=== PATIENT | male | born 1995 | race Caucasian/White ===

== ENCOUNTER 2016-09-04 15:30 | Emergency (ER) | payer OTHER ==
[~2016-09-04] VITALS: Ht 182.9 cm; Wt 77.1 kg
[2016-09-04 15:30] VITALS: BP 117/63
[~2016-09-04 15:30] MED LIST: LORazepam Inj 2mg/ml 1ml ONE
[2016-09-04] MEDS ORDERED: LORazepam Inj 2mg/ml 1ml IV ONE (15:45)
--- NOTE | 2016-09-04 15:45 | Emergency Room Report ---
History of Present Illness General Chief Complaint: Overdose Source: Patient, EMS Present Illness HPI 21YOM BIBEMS with [employer] after suspected overdose. EMS states they found patient in hotel room with a friend, unresponsive, not breathing. Friend states patient "did meth and heroin." EMS states patient had pinpoint pupils, shallow respirations, had to provide BVM support, gave 4mg IV narcan. No signs of trauma. In ED, patient more awake, "doesnt remember what happens." C/o only of "being very cold." Allergies: Coded Allergies: No Known Allergies (Unverified , 09/04/16) Patient History Past Medical History: none Past Surgical History: none Pertinent Family History: none Social History: Reports: drug use Immunizations: UTD Reviewed Nursing Documentation: PMH: Agreed, PSxH: Agreed Nursing Documentation-PMH Past Medical History: No Stated History Review of Systems All Other Systems: negative except mentioned in HPI Physical Exam Vital Signs Date Time Temp Pulse Resp B/P Pulse Ox O2 Delivery O2 Flow Rate FiO2 09/04/16 15:19 98.2 138 18 147/72 100 Room Air Sp02 EP Interpretation: reviewed, abnormal General Appearance: normal inspection, well appearing, no apparent distress, alert, GCS 15, non-toxic, cachetic, other - shaking with chills Head: normocephalic, atraumatic Eyes: bilateral eye EOMI, bilateral eye PERRL ENT: normal ENT inspection, hearing grossly normal, normal voice, other - Poor oral health Neck: normal inspection, full range of motion, supple, no meningismus, no bony tend Respiratory: normal inspection, lungs clear, normal breath sounds, no respiratory distress, no retraction, no accessory muscle use, no wheezing, speaking full sentences Cardiovascular #1: regular rate, rhythm, no edema, tachycardia Gastrointestinal: normal inspection, normal bowel sounds, non tender, soft, no guarding, no hernia Genitourinary: no CVA tenderness Musculoskeletal: normal inspection, back normal, normal range of motion, Dalton' s Sign negative Neurologic: normal inspection, alert, oriented x3, responsive, plan nurse III-XII nml as tested, motor strength/tone normal, speech normal Psychiatric: normal inspection, judgement/insight normal, mood/affect normal Skin: normal inspection Lymphatic: normal inspection Medical Decision Making Diagnostic Impression: Primary Impression: Drug overdose Qualified Codes: T50.901A - Poisoning by unspecified drugs, medicaments and biological substances, accidental (unintentional), initial encounter ER Course 21YOM with alleged drug overdose - meth and heroin VS now significant for tachycardia, likely unopposed alpha from meth after narcan given for heroin - Given 1mg ativan for initial tachycardia to 130-40. Resolved upon discharge - Observed on Cardiac/respiratory monitor for multiple hours - No additional respiratory depression - DCed with friend who was also in ED for evaluation - Advised to STOP using illict drugs. Given info for outpatient addiction services. Last Vital Signs Date Time Temp Pulse Resp B/P Pulse Ox O2 Delivery O2 Flow Rate FiO2 09/04/16 15:19 98.2 138 18 147/72 100 Room Air Status: improved Disposition: HOME, SELF-CARE MAGGIE VERA M.D. September 04, 2016 15:45
[2016-09-04 17:00] VITALS: BP 100/59
[2016-09-04] MEDS ORDERED: Naloxone 1mg/ml 2ml IVP ONE (18:30)
[2016-09-04 19:10] VITALS: BP 100/59
== END 2016-09-04 19:00 | disposition home or self-care (01) ==
LOC: EDBD 15:30 → EMR 15:56
DX: T50.901A Poisoning by unspecified drugs, medicaments and biological substances, accidental (unintentional), initial encounter (principal); F19.90 Other psychoactive substance use, unspecified, uncomplicated
CPT/HCPCS: 96374; 96375; 99284; J2310

== ENCOUNTER 2016-09-05 07:17 | Emergency (ER) | payer OTHER ==
[~2016-09-05] VITALS: Ht 172.7 cm; Wt 68.0 kg
[2016-09-05 07:21] VITALS: BP 125/80
[2016-09-05] MEDS ORDERED: Gentamicin 0.3% Opth Soln 5ml BOTH EYES ONE (07:45)
--- NOTE | 2016-09-05 08:21 | Emergency Room Report ---
History of Present Illness General Chief Complaint: Overdose Source: Patient, Family Member, Medical Record, EMS Present Illness HPI Patient was brought in by paramedics for report of drug overdose Patient reports taking heroin earlier today Patient had an intentional overdose Paramedics report that the patient was seen recently as well And upon review of records the patient was here yesterday with similar complaint At this time patient is awake denies any headache or visual changes denies any chest pain or shortness of breath Patient denies adamantly suicidal or homicidal thought Allergies: Uncoded Allergies: ERYTHROMYCIN (Allergy, Unknown, 09/05/16) Patient History Past Medical History: see triage record Pertinent Family History: none Reviewed Nursing Documentation: PMH: Agreed, PSxH: Agreed Nursing Documentation-PMH Past Medical History: No History, Except For Review of Systems All Other Systems: negative except mentioned in HPI Physical Exam Vital Signs Date Time Temp Pulse Resp B/P Pulse Ox O2 Delivery O2 Flow Rate FiO2 09/05/16 07:12 98.2 59 16 168/78 99 Room Air Sp02 EP Interpretation: reviewed, normal General Appearance: well appearing, no apparent distress Head: normocephalic, atraumatic Eyes: bilateral eye EOMI, bilateral eye PERRL, bilateral eye other - Conjunctival injection bilaterally ENT: hearing grossly normal, normal pharynx, TMs + canals normal, uvula midline Neck: full range of motion, supple, no meningismus, no bony tend Respiratory: lungs clear, normal breath sounds, no rhonchi, no respiratory distress, no retraction, no accessory muscle use Cardiovascular #1: normal peripheral pulses, regular rate, rhythm, no edema, no gallop, no JVD, no murmur Gastrointestinal: normal bowel sounds, non tender, soft, no mass, no organomegaly, non-distended, no guarding, no hernia, no pulsatile mass, no rebound Genitourinary: no CVA tenderness Musculoskeletal: normal inspection Neurologic: oriented x3, responsive, audiology director III-XII nml as tested, motor strength/ tone normal, sensory intact Psychiatric: mood/affect normal Skin: normal color, no rash, warm/dry, palpation normal Lymphatic: normal inspection, no adenopathy Medical Decision Making Diagnostic Impression: Primary Impression: Drug overdose ER Course Multiple diverse was considered Patient upon arrival is awake and easily arousable No further intervention was required as far as reversal medications patient was hydrated and placed on a front desk monitor Given that this is the patient's second repeat visit in a short time Police Department were here and have cleared the patient Social work was also contacted spoke to the patient and the patient's girlfriend and that also cleared the patient There is no reports of any suicidal homicidal thoughts Patient feels that he use more than usual and is aware that this can result in After a prolonged observation patient continues to do well and requesting outpatient followup Rhythm Strip Diag. Results EP Interpretation: yes Rate: 77 Rhythm: NSR, no PVC's, no ectopy Last Vital Signs Date Time Temp Pulse Resp B/P Pulse Ox O2 Delivery O2 Flow Rate FiO2 09/05/16 07:21 98.2 93 16 125/80 93 Room Air Status: improved Disposition: HOME, SELF-CARE Condition: Improved Referrals: NOT CHOSEN IPA/MD,REFERRING (PCP) Additional Instructions: Patient is provided with the discharge instructions notified to follow up with primary doctor in the next 2-3 days otherwise return to the er with any worsening symptoms. Please note that this report is being documented using [employer] technology. This can lead to erroneous entry secondary to incorrect interpretation by the dictating instrument. PARKER SOLANO D.O. Sep 05, 2016 08:21
[2016-09-05 08:47] VITALS: BP 117/60
[2016-09-05 10:36] VITALS: BP 98/47
[2016-09-05 11:13] VITALS: BP 117/60
[2016-09-05 11:15] VITALS: BP 107/60
== END 2016-09-05 11:22 | disposition home or self-care (01) ==
LOC: EDBD 07:17 → EMR 07:39
DX: T40.1X1A Poisoning by heroin, accidental (unintentional), initial encounter (principal); Z88.1 Allergy status to other antibiotic agents; X58.XXXA Exposure to other specified factors, initial encounter; Y92.9 Unspecified place or not applicable
CPT/HCPCS: 99283